=== PATIENT | male | born 1995 | race Caucasian/White ===

== ENCOUNTER 2022-02-10 19:21 | Emergency (ER) | payer SELFPAY ==
[~2022-02-10] VITALS: Ht 167.6 cm; Wt 72.6 kg
[2022-02-10 19:27] VITALS: BP 128/78
--- NOTE | 2022-02-10 19:27 | NUR ---
BIBA TAKEN TO BED #6
--- NOTE | 2022-02-10 19:27 | NUR ---
[facility] PD AT BEDSIDE.
--- NOTE | 2022-02-10 19:46 | NUR ---
PD AT BEDSIDE. PD TO EVALUATE AND DECIDE IF HI NEEDS MED CLEARANCE. PD TO WRITE 5150 AND DECIDE IF THEY CAN TAKE HIM STRAIGHT TO PSYCH FACILITY.
--- NOTE | 2022-02-10 19:47 | NUR ---
27 Y/O MALE BIBA FO SUICIDAL IDEATIONS. PT WAS [facility] AND CALLED SECURITY TO CALL PD. PT STATES HE HEARS VOICES AND WANT TO WALK OUT INTO TRAFFIC. PT STATES HE WANTS HELP AND WANTS TO GO STRAIGHT TO PSYCH FACILITY. PT DOES NOT WASNT TO BE IN ER
[2022-02-10] MEDS ORDERED: OLANZapine 5 MG ODT PO ONE (20:10)
--- NOTE | 2022-02-10 20:10 | NUR ---
DR. TERRY AT BEDSIDE FOR EVALUTION
--- NOTE | 2022-02-10 20:12 | NUR ---
PT BELONGINGD GIVEN TO SECURITY
[2022-02-10 20:23] LABS: BASOPHILS % (AUTO) 0.5 % (0.0-2.0); EOSINOPHILS # (AUTO) 0.2 K/uL (0-0.4); EOSINOPHILS % (AUTO) 2.1 % (0.0-4.0); HEMATOCRIT 46.7 % (36-52); HEMOGLOBIN 15.5 g/dL (12.0-18.0); LYMPHOCYTES # (AUTO) 3.1 K/uL (2.0-11.5); LYMPHOCYTES % (AUTO) 35.2 % (20.5-51.1); MEAN CORPUSCULAR HEMOGLOBIN 28 pg (27-31); MEAN CORPUSCULAR HGB CONC 33 g/dL (33-37); MEAN CORPUSCULAR VOLUME 85.3 fL (80-94); MONOCYTES # (AUTO) 0.4 K/uL (0.8-1.0); NEUTROPHILS % (AUTO) 57.2 % (42.2-75.2); PLATELET COUNT (AUTO) 280 K/uL (140-450); RED BLOOD CELL COUNT(AUTO) 5.47 MIL/uL (4.20-6.10); RED CELL DISTRIBUTION WIDTH 13.8 % (11.6-13.7); WHITE BLOOD COUNT (AUTO) 8.7 K/uL (4.8-10.8)
--- NOTE | 2022-02-10 20:47 | NUR ---
PT DENIED MEDICATIONS. DAYS HE WILL NOT TAKE THEM
[2022-02-10 20:52] LABS: ALBUMIN 4.4 g/dL (3.4-5.0); ANION GAP 14.1 (8-16); ASPARTATE AMINOTRANSFERASE 16 U/L (15-37); CARBON DIOXIDE 27.8 mmol/L (21-32); CHLORIDE 104 mmol/L (98-107); CREATININE 1.2 mg/dL (0.6-1.3); GFR ARICAN-AMERICAN 92 mL/min (>90); GLUCOSE 101 mg/dL (74-106); POTASSIUM 4.9 mmol/L (3.5-5.1); SODIUM SERUM 141 mmol/L (136-145); TOTAL BILIRUBIN 0.3 mg/dL (0.0-1.0); UREA NITROGEN, BLOOD 11 mg/dL (7-18)
--- NOTE | 2022-02-10 21:10 | NUR ---
PHONE NUMBER FOR MOTHER IN [facility] GIVEN BY PATIENT [phone]
[2022-02-10 21:19] LABS: SALICYLATE < 2.8 mg/dL (2.8-20.0)
[2022-02-10 21:20] LABS: ACETAMINOPHEN < 0.5 ug/ml (10-30)
--- NOTE | 2022-02-10 22:33 | NUR ---
PROVIDED PT URINAL.
--- NOTE | 2022-02-10 23:01 | NUR ---
Patient appears to be resting comfortably in bed. Vital Signs within normal limits. Respirations even and unlabored.
[2022-02-10 23:08] LABS: BARBITURATE, URINE NEGATIVE ng/ml (NEG <=200); BENZODIAZEPINE, URINE NEGATIVE ng/mL (NEG <=200); CANNABINOID, URINE NEGATIVE ng/mL (NEG <=50); COCAINE, URINE NEGATIVE ng/mL (NEG <=300); OPIATE, URINE NEGATIVE ng/mL (NEG <=2000); PHENCYCLIDINE SCREEN,URINE NEGATIVE ng/mL (NEG <=25)
--- NOTE | 2022-02-11 03:00 | NUR ---
pt awaiting telepysch call
--- NOTE | 2022-02-11 04:00 | NUR ---
haresh gillis stated he does not believe pt meets criteria for 5150. haresh released pt from 5150 hold.
[2022-02-11 06:00] VITALS: BP 133/83
--- NOTE | 2022-02-11 06:00 | NUR ---
Patient discharged with v/s stable. Written and verbal after care instructions given and explained. Patient alert, oriented and verbalized understanding of instructions. Ambulatory with steady gait. All questions addressed prior to discharge. ID band removed. Patient advised to follow up with PMD. Opportunity to ask questions provided and answered.
--- NOTE | 2022-02-11 06:00 | NUR ---
pt dc with food, fpc and mental health packet
--- NOTE | 2022-02-11 06:33 | NUR ---
The patient's care was reviewed and supervised by Tomeka Cortes RN.
== END 2022-02-11 06:00 | disposition home or self-care (01) ==
LOC: MED 19:21
DX: F20.9 Schizophrenia, unspecified (principal); F41.9 Anxiety disorder, unspecified
CPT/HCPCS: 36415; 80053; 80305; 85025; 99283; G0480; G0482